=== PATIENT | male | born 1950 ===

== ENCOUNTER 2016-10-26 15:08 | Inpatient (IN) ==
[2016-10-26 17:35] LABS: Basophils % 0.3 % (0.0-0.8); Eosinophils # 0.1 10*3/uL (0.0-0.87); Eosinophils % 0.8 % (0.00-10.9); Hematocrit 32.5 VOL% (42.0-52.0); Hemoglobin 11.2 GM/DL (14.0-18.0); Immature Granulocytes % 0.6 %; Immature Granulocytes Absolute 0.07 #; Lymphocytes # 0.9 10*3/uL (1.4-4.0); Lymphocytes % 7.2 % (21.2-54.2); Mean Corpuscular HGB Conc 34.5 GM/DL (32-36); Mean Corpuscular Hemoglobin 30 PG (27-34); Mean Corpuscular Volume 87.1 FL (87-102); Mean Platelet Volume 12.4 FL (9.6-12.0); Monocytes # 0.7 10*3/uL (0.11-0.8); Monocytes % 6.2 % (1.7-12.7); Neutrophils # 10.1 10*3/uL (1.4-7.4); Neutrophils % 84.9 % (38.7-73.9); Platelet Count 167 T/CUMM (130-400); Red Blood Count 3.73 MC/CUMM (3.8-5.5); White Blood Count 11.9 T/CUMM (4-12)
--- NOTE | 2016-10-26 17:44 | XRay Report ---
Right foot, 3 views History is diabetes with right foot abscess There has been prior amputation through the distal aspects of the first through third metatarsals with chronic, corticated changes at the postoperative site. No aggressive periosteal reaction or focal erosions are seen Vascular calcifications present Impression: Chronic changes described above PROCEDURE INTERPRETED AT [facility] DEPARTMENT OF RADIOLOGY Final Report Signed by: Dr. Toya Carson
[2016-10-26 17:50] LABS: Calcium 8.2 MG/DL (8.5-10.1); Magnesium 2.1 MG/DL (1.8-2.4); Osmolality,Calculated 289.1 MOS/KG (273-304); Potassium 4.3 MMOL/L (3.5-5.1)
[2016-10-26] MEDS ORDERED: CLINDAMYCIN INJ 600 MG in PREMIX 1 EACH IV STA (17:57)
[2016-10-26] MEDS ORDERED: ALUMINUM/MAGNES/SIMETH MAX STR 30 ML UDCUP PO PRN (18:16)
[2016-10-26] MEDS ORDERED: HYDROmorphone 2 MG/1 ML VIAL IV PRN (18:16)
[2016-10-26] MEDS ORDERED: ONDANSETRON 4 MG/2 ML VIAL IV PRN (18:16)
[2016-10-26] MEDS ORDERED: GLUCAGON 1 MG VIAL IM PRN (18:16)
[2016-10-26] MEDS ORDERED: DEXTROSE 50% 25 GM/50 ML VIAL IV PRN (18:16)
[2016-10-26] MEDS ORDERED: ACETAMINOPHEN 325 MG TABLET PO PRN (18:16)
--- NOTE | 2016-10-26 18:17 | Emergency Department Note ---
Rohit Morel Brittany, am scribing for, and in the presence of, Sanjay Mcdonough M.D. 17:03. Sharonda Morel Howard T, M.D., personally performed the services described in this documentation, ascribed by Dina Bee in my presence, and it is both accurate and complete 816 . Arrival - Arrival Chief Complaint: Abscess Stated Complaint: DRAIN ON RT FOOT ED Nursing Triage Note: sent from [facility] for further evaluation of ulcer on bottom of right foot. Mode of Arrival: Ambulatory Limitations: No Limitations Source: Patient, Old Records Reviewed, RN Notes Reviewed - History of Present Illness HPI Narrative: Patient is a 65 y/o [place] male presenting to the ED by EMS from [facility] for further evaluation of ulcer to the plantar region of the right foot. Patient states that he has noticed some dry skin to the plantar region of his foot and had been scraping it off. He then began to notice erythema and swelling which prompted his visit to [facility]. He states that while at [facility] ER physician there was able to remove some drainage from the right foot, but at current in room there is no drainage. Patient denies having any labwork or XR performed during time at [facility] prior to transfer. In room patient has a chronic ulcer at the lateral aspect of the right foot. He also has diffuse erythema and swelling beginning at the plantar region radiating into the medial aspect. He has a history of amputation of the right great, first and second toes from . Patient denies having any pain. He has no other complaint/pain in the ED at this time. Allergies/Adverse Reactions: Allergies Allergy/AdvReac Type Severity Reaction Status Date / Time No Known Allergies Allergy Unverified 11/25/15 07:34 Home Medications: Home Medications Medication Instructions Recorded Confirmed Type Aspirin [Ecotrin] 81 mg PO DAILY 11/25/15 10/26/16 History Lisinopril [Prinivil] 10 mg PO DAILY 11/25/15 10/26/16 History Pravastatin [Pravachol] 20 mg PO QPM 11/25/15 10/26/16 History Insulin Detemir [Levemir FlexPen] 20 unit SUBCUT BEDTIME 10/26/16 10/26/16 History Metformin HCl 1,000 mg PO BID 10/26/16 10/26/16 History Saxagliptin HCl [Onglyza] 5 mg PO DAILY 10/26/16 10/26/16 History Review of System - Review of System 12 point system: reviewed and no additional remarkable complaints except as stated - Review of System Skin: Present: as per HPI Medical,Surgical,& Family Hx - Medical History Cardio: History of: Hypertension Neurology: History of: Cerebrovascular Accident (2006) No history of: Seizures Endocrine: History of: Diabetes Mellitus (IDDM), Dyslipidemia Musculoskeletal: History of: Amputation (toes ernie) Hematology: No history of: Blood Transfusion Reaction Other: No history of: Anesthesia Reactions, Cancer - Surgical History HEENT Surgeries: Surgical HX of: Thyroid Surgery Abdominal Surgeries: Patient denies: Abdominal Surgery - Family History Family History: Reports;: Family Cancer (dad-stomach) - Social History Smoking Status: Never smoker Exam Vital Signs: Vital Signs Temperature 98.8 F 10/26/16 15:18 Pulse Rate 104 H 10/26/16 15:18 Respiratory Rate 18 10/26/16 15:18 Blood Pressure 111/63 10/26/16 15:18 O2 Sat by Pulse Oximetry 99 10/26/16 15:18 - General General appearance: alert, in no apparent distress - Head Head exam: Present: atraumatic, normocephalic, normal inspection - Eye Eye exam: Present: normal appearance, PERRL, EOMI - ENT ENT exam: Present: normal exam, normal oropharynx - Neck Neck exam: Present: normal inspection, full ROM, trachea midline - Chest Chest inspection: Present: normal inspection, symmetric chest wall rise - Respiratory Respiratory exam: Present: normal lung sounds bilaterally. Absent: rales, rhonchi, wheezes - Cardiovascular Cardiovascular exam: Present: regular rate, normal rhythm, normal heart sounds. Absent: murmur, rubs, gallop - Abdominal Exam Abdominal exam: Present: soft, normal bowel sounds. Absent: distention, tenderness - Extremities Exam Extremities exam: Present: full ROM. Absent: normal inspection (prior amputation of the great, second, and third toes; diffuse acute erythema radiating from the plantar region into the medial aspect; chronic ulcer at the lateral aspect; pedal pulses intact), tenderness - Back Exam Back exam: Present: normal inspection - Neurological Exam Neurological exam: Present: alert, oriented X3, CN II-XII intact. Absent: motor sensory deficit - Psychiatric Psychiatric exam: Present: normal affect - Skin Skin exam: Present: warm, dry. Absent: intact (diffuse acute erythema and swelling radiating from the plantar region into the medial aspect; chronic ulcer at the lateral aspect; pedal pulses intact) Course Course Narrative: Medical decision making: Patient's foot was evaluated by general surgeon health information tech Dr. Preciado who will admit and likely take him to the OR in the morning. Results - Labs CBC & BMP: 10/26/16 17:19 10/26/16 17:19 Lab Results: I have reviewed the patients labs Labs: Laboratory Tests 10/26/16 17:19 WBC 11.9 RBC 3.73 L Hgb 11.2 L Hct 32.5 L MCV 87.1 MCH 30 MCHC 34.5 RDW 14.0 Plt Count 167 MPV 12.4 H Neut % (Auto) 84.9 H Lymph % (Auto) 7.2 L Nye % (Auto) 6.2 Eos % (Auto) 0.8 Baso % (Auto) 0.3 Neut # (Auto) 10.1 H Lymph # (Auto) 0.9 L Nye # (Auto) 0.7 Eos # (Auto) 0.1 Baso # (Auto) 0.0 Immature Gran % 0.6 Nucleated RBC % 0.0 Immature Gran # 0.07 Nucleated RBCs # 0.00 Laboratory Tests 10/26/16 17:19 Sodium 142 Potassium 4.3 Chloride 106 Carbon Dioxide 25 Anion Gap 15.3 H BUN 26 H Creatinine 1.70 H GFR Calculation 43 BUN/Creatinine Ratio 15.00 Glucose 135 H Calculated Osmolality 289.1 Calcium 8.2 L Magnesium 2.1 - Diagnostic Findings Procedure: X-ray: report reviewed by me (Right Foot XR: There has been prior amputation through the distal aspects of the first through third metatarsals with chronic, corticated changes at the postoperative site. No aggressive periosteal reaction or focal erosions are seen.) Disposition Clinical Impression: Cellulitis, Abscess of skin or subcutaneous tissue, Abscess of right foot Case discussed with: patient Disposition: Disch/Xfer-Ipshort Term Hos Condition: Stable Time of Disposition: 18:16
--- NOTE | 2016-10-26 18:29 | General Surg History&Physical ---
Assessment and Plan - Time spent with patient Time spent with patient: Greater than 30 minutes (1) Abscess of skin or subcutaneous tissue Status: Acute Assessment and plan: Impression: 1. Abscess of the right foot with cellulitis 2. Diabetes mellitus insulin-dependent Plan: IV antibiotics and surgical debridement drainage. Current Visit: Yes Qualifiers: Site of cutaneous abscess of extremity: foot Laterality: right History of Present Illness Chief complaint: Abscess of the right foot History of present illness: Mr. Adams is a 65 year old male male who is a diabetic insulin- dependent and has a callus on the right foot on the lateral aspect of the been working on for couple weeks. Over the last 5 days he developed an area of swelling and erythema in the plantar surface of the foot. The arch and he was sent in here for possible drainage of this abscess. Same in the emergency room and started on some IV antibiotics set him up for surgery in the morning get this area drained. In the past he has had to have a couple toes amputated on that foot because of infection in the past. Home Medications Medication Instructions Recorded Confirmed Type Aspirin [Ecotrin] 81 mg PO DAILY 11/25/15 10/26/16 History Lisinopril [Prinivil] 10 mg PO DAILY 11/25/15 10/26/16 History Pravastatin [Pravachol] 20 mg PO QPM 11/25/15 10/26/16 History Insulin Detemir [Levemir FlexPen] 20 unit SUBCUT BEDTIME 10/26/16 10/26/16 History Metformin HCl 1,000 mg PO BID 10/26/16 10/26/16 History Saxagliptin HCl [Onglyza] 5 mg PO DAILY 10/26/16 10/26/16 History Allergies Allergy/AdvReac Type Severity Reaction Status Date / Time No Known Allergies Allergy Unverified 11/25/15 07:34 Medical,Surgical,& Family Hx - Medical History Cardio: History of: Hypertension Neurology: History of: Cerebrovascular Accident (2005) No history of: Seizures Endocrine: History of: Diabetes Mellitus (IDDM), Dyslipidemia Musculoskeletal: History of: Amputation (toes ernie) Hematology: No history of: Blood Transfusion Reaction Other: No history of: Anesthesia Reactions, Cancer - Surgical History HEENT Surgeries: Surgical HX of: Thyroid Surgery Abdominal Surgeries: Patient denies: Abdominal Surgery - Family History Family History: Reports;: Family Cancer (dad-stomach) - Social History Smoking Status: Never smoker Functional capacity: independent ambulation Exam - Constitutional Vitals: Period Temp Pulse Resp BP Sys/Evangelista Pulse Ox Last 24 Hr 98.8 F 104 18 111/63 99 General appearance: mild distress - Head Head exam: Present: normal inspection - ENT ENT exam: Present: normal exam - Neck Neck exam: Present: normal inspection - Respiratory Respiratory exam: Present: clear to auscultation bilaterally - Cardiovascular Cardiovascular exam: Present: RRR - GI/Abdominal GI/Abdominal exam: Present: normal bowel sounds, soft - Extremities Exam Extremities exam: Present: other (The right foot has the first 2 toes missing at this time with a healed wound present. He has a callus on the lateral aspect of the foot that looks a little fluctuant also that may have a small ulcer in the center of it. On the medial aspect of the foot on the plantar surface at the arch is an erythematous area with a lacunar area in the very center part of it is a little bit tender at this time. There is a 2+ palpable pulse dorsalis pedis in this right foot he has a 4+ pulse on the left.) - Back Exam Back exam: Present: normal inspection - Neurological Exam Neurological exam: Present: alert, oriented X3, CN II-XII intact - Skin Skin exam: Present: normal color, warm, dry 12 point system: reviewed and no additional remarkable complaints except as stated Results - Labs CBC & BMP: 10/26/16 17:19 10/26/16 17:19 Lab Results: I have reviewed the past 24 hour labs - Diagnostic Findings Procedure: Chest x-ray: pending, X-ray: report reviewed by me (Right foot with no evidence of air under the skin and no evidence of osteo-in the bone)
[2016-10-26] MEDS ORDERED: CLINDAMYCIN INJ 50 ML IV ONE (18:34)
--- NOTE | 2016-10-26 19:44 | XRay Report ---
History is a preop respiratory screening Single portable film obtained. Heart is at the upper range of normal in size Skin fold overlies the left lung base. There is slight elevation right diaphragm No consolidative infiltrate is seen Impression: 1. Borderline heart size 2. Minimal hypoaeration changes in the right lung base PROCEDURE INTERPRETED AT [facility] DEPARTMENT OF RADIOLOGY Final Report Signed by: Dr. Toya Carson
[2016-10-26] MEDS: metroNIDAZOLE INJ 500 MG in PREMIX 1 EACH IV SCH (20:22)
[2016-10-26] MEDS: SODIUM CHLORIDE 0.45% 1,000 ML IV SCH (20:22)
[2016-10-26] MEDS: DOCUSATE SODIUM 100 MG CAPSULE PO SCH (20:22)
[2016-10-26] MEDS: PRAVASTATIN 20 MG TABLET PO SCH (20:22)
[2016-10-26] MEDS: INSULIN GLARGINE 100 UNIT/ML SUBCUT SCH (20:26)
[2016-10-26] MEDS: PIPERACILLIN/TAZOBACTAM 3,375 MG in SODIUM CHLORIDE 0.9% 100 ML IV SCH (21:19)
[2016-10-26] MEDS: INSULIN REGULAR 100 UNIT/ML SUBCUT SCH (21:20)
[2016-10-27] MEDS: CLINDAMYCIN INJ 900 MG in PREMIX 1 EACH IV SCH ×4 (01:13→18:08)
[2016-10-27] MEDS: metroNIDAZOLE INJ 500 MG in PREMIX 1 EACH IV SCH ×4 (01:44→18:57)
[2016-10-27] MEDS: PIPERACILLIN/TAZOBACTAM 3,375 MG in SODIUM CHLORIDE 0.9% 100 ML IV SCH ×3 (02:45→20:42)
[2016-10-27] MEDS: SODIUM CHLORIDE 0.45% 1,000 ML IV SCH ×3 (03:53→18:58)
--- NOTE | 2016-10-27 07:25 | EKG Report ---
Stationary ECG Study [facility] Test Date: 10/27/2016 7:25:11 AM Pat Name: MAXIMINO AMBROSE Department: Room: 331 Gender: M Windows Server Administrator: DARCY : 1950 Requested by: Simone Patel Order Number: [id number] Reading MD: AKBAR GONZALEZ Intervals [place] Rate: 84 P: 66 KS: 158 QRS: 53 QRSD: 114 T: 5 QT: 366 QTc: 408 Interpretive Statements SINUS RHYTHM MODERATE INTRAVENTRICULAR CONDUCTION DELAY ST ELEVATION, PROBABLY EARLY REPOLARIZATION Electronically Signed On 10-27-16 12:28:03 CDT by AKBAR GONZALEZ [email or web address]
[2016-10-27 08:55] LABS: Basophils % 0.5 % (0.0-0.8); Eosinophils # 0.1 10*3/uL (0.0-0.87); Eosinophils % 1.2 % (0.00-10.9); Hematocrit 29.2 VOL% (42.0-52.0); Hemoglobin 9.9 GM/DL (14.0-18.0); Immature Granulocytes % 0.7 %; Immature Granulocytes Absolute 0.06 #; Lymphocytes # 0.7 10*3/uL (1.4-4.0); Lymphocytes % 8.1 % (21.2-54.2); Mean Corpuscular HGB Conc 33.9 GM/DL (32-36); Mean Corpuscular Hemoglobin 29 PG (27-34); Mean Corpuscular Volume 86.4 FL (87-102); Mean Platelet Volume 11.9 FL (9.6-12.0); Monocytes # 0.6 10*3/uL (0.11-0.8); Monocytes % 6.4 % (1.7-12.7); Neutrophils # 7.2 10*3/uL (1.4-7.4); Neutrophils % 83.1 % (38.7-73.9); Platelet Count 176 T/CUMM (130-400); Red Blood Count 3.38 MC/CUMM (3.8-5.5); Red Cell Distribution Width 14.1 % (9.3-17.3); White Blood Count 8.6 T/CUMM (4-12)
[2016-10-27 09:09] LABS: INR 1.1; PT Patient Result 11.4 SECS
[2016-10-27 09:16] LABS: Partial Thromboplastin Time 43.4 SECS (0-40)
[2016-10-27] MEDS: DOCUSATE SODIUM 100 MG CAPSULE PO SCH ×2 (09:21→20:42)
[2016-10-27] MEDS: INSULIN REGULAR 100 UNIT/ML SUBCUT SCH ×4 (09:21→20:42)
[2016-10-27] MEDS: ASPIRIN EC 81 MG TABLET PO SCH (09:21)
[2016-10-27] MEDS: PANTOPRAZOLE 40 MG TABLET PO SCH (09:22)
[2016-10-27] MEDS: sitaGLIPtin 100 MG TABLET PO SCH (09:22)
[2016-10-27 09:27] LABS: Albumin 2.8 G/DL (3.4-5.0); Calcium 7.9 MG/DL (8.5-10.1); Osmolality,Calculated 291.7 MOS/KG (273-304); Potassium 4.3 MMOL/L (3.5-5.1); Total Protein 6.3 G/DL (6.4-8.3)
[2016-10-27] MEDS: LISINOPRIL 10 MG TABLET PO SCH (09:58)
[2016-10-27] MEDS: ENOXAPARIN 40 MG/0.4 ML SYRINGE SUBCUT SCH (13:31)
[2016-10-27] MEDS ORDERED: BUPIVACAINE 0.25% 50 ML VIAL ONE (14:19)
[2016-10-27] MEDS ORDERED: PROPOFOL 200 MG/20 ML VIAL IV ONE (14:30)
--- NOTE | 2016-10-27 15:10 | Physician Query Form ---
CLICK EDIT DOCUMENT TO SELECT QUERY ANSWER --> OK --> SIGN Radha Gomez RN Clinical Stunt Performer W) [phone] (f) [phone] [email or web address] PROVIDERS: Make your selection(s) from the choices in EACH section by typing an "x" and enter comments in the comment section. Please use your independent medical judgment in providing your response. This request does not imply that any particular answer is desired or expected. CLINICAL INDICATORS: (Providers should not edit this section) Based on lab results of creatinine on admission of 1.70 with a GFR of 43 and decreased to 1.20. Pt. treated with IV fluids. Clarify which of the following most accurately represents the patient's renal status: ( x) Acute kidney injury (non-traumatic) ( ) Acute renal failure ( ) Acute renal failure with underlying Chronic Kidney Disease (CKD) - please provide stage below ( ) CKD - please provide stage below ( ) Other, please specify: ( ) Clinically unable to determine Chronic Kidney Disease Stages Source: National Kidney Disease Foundation ( ) Stage I (eGFR > or = 90) ( ) Stage II (eGFR 60 - 89) ( ) Stage III (eGFR 30 - 59) ( ) Stage IV (eGFR 15 - 29) ( ) Stage V (eGFR < 15 or dialysis) COMMENTS: Use of terms such as suspected, likely, or probable (associated with a specific diagnosis that is being evaluated, monitored, or treated as if it exists) are acceptable and can be restated in the discharge summary if not ruled out. MTDD
[2016-10-27] MEDS ORDERED: HYDROmorphone 2 MG/1 ML VIAL IV PRN (15:19)
[2016-10-27] MEDS ORDERED: GLUCAGON 1 MG VIAL IM PRN (15:19)
[2016-10-27] MEDS ORDERED: DEXTROSE 50% 25 GM/50 ML VIAL IV PRN (15:19)
--- NOTE | 2016-10-27 15:27 | Anesthesia ---
Anesthesia Post OP - Post Ansesthetic Evaluation Patient seen in post op: Yes Resp: within normal limits CV: within normal limits Mental: within normal limits Temp: within normal limits [id number]-[id number]: within normal limits Nausea and Vomiting: within normal limits Pain: within normal limits
[2016-10-27] MEDS ORDERED: fentaNYL 100 MCG/2 ML VIAL ONE (15:30)
[2016-10-27] MEDS ORDERED: MIDAZOLAM 2 MG/2 ML VIAL ONE (15:30)
--- NOTE | 2016-10-27 15:31 | Operative Note ---
Date of procedure: 10/27/16 Pre-op diagnosis: Abscess right foot plantar surface Post-op diagnosis: same Procedure: Operative note: Preoperative diagnosis: Abscess of the plantar surface of the right foot with a diabetic ulcer lateral aspect of the right foot. Postoperative diagnosis: Same Procedure: Excisional debridement of skin subtenons tissue fascia of the plantar surface of the right foot. 2 excisional debridement of ulcer lateral aspect of the right foot with tunneling. Surgeon Dr. Patel Anesthesia was managed anesthetic care with local Brief history: Diabetic 65-year-old white male who lost toes in the past because of infection and has developed a callused ulcerated area on the lateral aspect of his foot. Over the last 5 days is started get more swelling and erythematous changes in the plantar surface of his foot. Came into the emergency room where he felt like that this fluctuant area with some necrotic changes need to be drained. Put him on antibiotics brought him to surgery this afternoon for surgery. Procedure: With patient in supine position prepped and draped in a sterile fashion timeout and antibiotics completed approaches area of the plantar surface where there is a fluctuant mass with ischemic skin changes present right about the level of the arch. After infiltrating local anesthetic I made an incision to the skin subtenons tissue entering a deep pocket of purulent material that we then cultured with swabs. I then excised the necrotic skin around it and it went down into the deep part of the wound debriding necrotic fatty tissue and some fascia in order to get this wound bed is clean his I could possibly get it. I did extend the incision proximally and distally in order to get control of this area and get it cleaned up. Lost a little more skin in an area that we had to debride away because it was necrotic. Once this area looked fairly clean I did not see further extension of the infection that I begin to look at that lateral ulcer. Shaved some of the callus of the lateral ulcer. Is ideally dropped into an ulcer of the tunnel towards this plantar surface wound. Without much difficulty we found to track the Jacob from this lateral ulcer into the wound that we just created. At that point I put a through and through KATE drain and then finished by debridement in the foot wound. We washed irrigated with saline solution at this time. We now have a plantar wound is 6 1.5 x 0.7 cm in size. Bulky dressing was applied and the patient taken to recovery room. Estimated blood loss 5 cc Sponge count correct 2 Drains one quarter inch [place] Complications none Condition stable satisfactory Anesthesia: MAC, local (0.25% Marcaine plain mixed [id number] 1% Xylocaine plain) Surgeon / Physician: Simone Patel Estimated blood loss: minimal Specimens: other (Tissue for cultures) Condition: stable Disposition: floor Results - Labs CBC & BMP: 10/27/16 08:39 10/27/16 08:39 Discharge Plan - Discharge Medications No Action Lisinopril [Prinivil] 10 mg PO DAILY Pravastatin [Pravachol] 20 mg PO QPM Aspirin [Ecotrin] 81 mg PO DAILY Metformin HCl 1,000 mg PO BID Saxagliptin HCl [Onglyza] 5 mg PO DAILY Insulin Detemir [Levemir FlexPen] 20 unit SUBCUT BEDTIME - Follow Up or Referral - Forms/Instructions
[2016-10-27] MEDS: PRAVASTATIN 20 MG TABLET PO SCH (18:57)
[2016-10-27] MEDS: INSULIN GLARGINE 100 UNIT/ML SUBCUT SCH (20:42)
[2016-10-28] MEDS: CLINDAMYCIN INJ 900 MG in PREMIX 1 EACH IV SCH ×4 (00:14→17:24)
[2016-10-28] MEDS: metroNIDAZOLE INJ 500 MG in PREMIX 1 EACH IV SCH ×4 (01:02→17:57)
[2016-10-28] MEDS: PIPERACILLIN/TAZOBACTAM 3,375 MG in SODIUM CHLORIDE 0.9% 100 ML IV SCH ×3 (02:06→19:16)
[2016-10-28] MEDS: SODIUM CHLORIDE 0.45% 1,000 ML IV SCH ×3 (05:07→17:58)
[2016-10-28 06:08] LABS: Basophils % 0.5 % (0.0-0.8); Eosinophils # 0.1 10*3/uL (0.0-0.87); Eosinophils % 1.6 % (0.00-10.9); Hematocrit 28.8 VOL% (42.0-52.0); Hemoglobin 9.8 GM/DL (14.0-18.0); Immature Granulocytes % 0.7 %; Immature Granulocytes Absolute 0.06 #; Lymphocytes # 0.9 10*3/uL (1.4-4.0); Lymphocytes % 11.4 % (21.2-54.2); Mean Corpuscular Hemoglobin 29 PG (27-34); Mean Corpuscular Volume 86.5 FL (87-102); Mean Platelet Volume 11.7 FL (9.6-12.0); Monocytes # 0.7 10*3/uL (0.11-0.8); Monocytes % 8.3 % (1.7-12.7); Neutrophils # 6.3 10*3/uL (1.4-7.4); Neutrophils % 77.5 % (38.7-73.9); Platelet Count 171 T/CUMM (130-400); Red Blood Count 3.33 MC/CUMM (3.8-5.5); White Blood Count 8.1 T/CUMM (4-12)
[2016-10-28 06:41] LABS: Calcium 7.6 MG/DL (8.5-10.1); Osmolality,Calculated 290.6 MOS/KG (273-304)
[2016-10-28] MEDS: INSULIN REGULAR 100 UNIT/ML SUBCUT SCH ×4 (09:00→21:20)
--- NOTE | 2016-10-28 09:25 | General Surgery Progress Note ---
Assessment and Plan - Time spent with patient Time spent with patient: Less than 30 minutes (1) Abscess of skin or subcutaneous tissue Status: Acute Assessment and plan: Impression: 1. Abscess of the right foot with cellulitis 2. Diabetes mellitus insulin-dependent Plan: IV antibiotics and surgical debridement drainage. 10/28/2016 Starting wound care to the right foot as well as some physical therapy to get him to learn to put pressure just on the toes at this time and not on the bottom of his foot. He is on antibiotics and cultures are pending at this time. We will look the possibility of getting him to [facility] probably end of the week in attempt to continue wound care and some IV antibiotics. Current Visit: Yes Qualifiers: Site of cutaneous abscess of extremity: foot Laterality: right Subjective Patient reports: Present: no new complaints, pain is less, tolerating a regular diet, afebrile Exam - Constitutional Vitals: Period Temp Pulse Resp BP Sys/Evangelista Pulse Ox Last 24 Hr 97.3 F-99.8 F 59-94 16-20 97-132/53-67 94-100 General appearance: mild distress - Head Head exam: Present: normal inspection - ENT ENT exam: Present: normal exam - Neck Neck exam: Present: normal inspection - Respiratory Respiratory exam: Present: clear to auscultation bilaterally, rales - Cardiovascular Cardiovascular exam: Present: RRR - GI/Abdominal GI/Abdominal exam: Present: normal bowel sounds, soft - Extremities Exam Extremities exam: Present: other (Wound care starting on the ulcer of the plantar surface of the right foot. Clean with no obvious extension of the infection.) - Back Exam Back exam: Present: normal inspection - Neurological Exam Neurological exam: Present: alert, oriented X3, CN II-XII intact - Skin Skin exam: Present: normal color, warm, dry Results - Labs CBC & BMP: 10/28/16 04:57 10/28/16 04:57 Lab Results: I have reviewed the past 24 hour labs
[2016-10-28] MEDS: PANTOPRAZOLE 40 MG TABLET PO SCH (09:40)
[2016-10-28] MEDS: LISINOPRIL 10 MG TABLET PO SCH (09:40)
[2016-10-28] MEDS: ASPIRIN EC 81 MG TABLET PO SCH (09:40)
[2016-10-28] MEDS: sitaGLIPtin 100 MG TABLET PO SCH (09:41)
[2016-10-28] MEDS: DOCUSATE SODIUM 100 MG CAPSULE PO SCH ×2 (09:41→20:20)
[2016-10-28] MEDS: ENOXAPARIN 40 MG/0.4 ML SYRINGE SUBCUT SCH (12:38)
[2016-10-28] MEDS: PRAVASTATIN 20 MG TABLET PO SCH (19:16)
[2016-10-28] MEDS: INSULIN GLARGINE 100 UNIT/ML SUBCUT SCH (22:40)
[2016-10-29] MEDS: CLINDAMYCIN INJ 900 MG in PREMIX 1 EACH IV SCH ×4 (00:06→22:16)
[2016-10-29] MEDS: metroNIDAZOLE INJ 500 MG in PREMIX 1 EACH IV SCH ×4 (02:04→23:06)
[2016-10-29] MEDS: SODIUM CHLORIDE 0.45% 1,000 ML IV SCH ×3 (03:04→17:36)
[2016-10-29] MEDS: PIPERACILLIN/TAZOBACTAM 3,375 MG in SODIUM CHLORIDE 0.9% 100 ML IV SCH ×3 (03:05→17:46)
[2016-10-29] MEDS: INSULIN REGULAR 100 UNIT/ML SUBCUT SCH ×4 (08:12→21:17)
[2016-10-29] MEDS: sitaGLIPtin 100 MG TABLET PO SCH (08:15)
[2016-10-29] MEDS: ASPIRIN EC 81 MG TABLET PO SCH (08:29)
[2016-10-29] MEDS: PANTOPRAZOLE 40 MG TABLET PO SCH (08:29)
[2016-10-29] MEDS: DOCUSATE SODIUM 100 MG CAPSULE PO SCH ×2 (08:29→20:13)
[2016-10-29] MEDS: LISINOPRIL 10 MG TABLET PO SCH (08:29)
[2016-10-29] MEDS: BACITRACIN OINT 0.9 GM PACK TOP SCH (09:26)
[2016-10-29] MEDS: ENOXAPARIN 40 MG/0.4 ML SYRINGE SUBCUT SCH (11:53)
--- NOTE | 2016-10-29 14:08 | General Surgery Progress Note ---
Assessment and Plan - Time spent with patient Time spent with patient: Less than 30 minutes (1) Abscess of right foot Status: Acute Assessment and plan: Stable post I/D/Debridement of right foot. We'll continue the clindamycin and wound care for now. Considering coverage/closure methods. Current Visit: Yes Subjective Patient reports: Present: no new complaints, pain is less Exam - Constitutional Vitals: Period Temp Pulse Resp BP Sys/Evangelista Pulse Ox Last 24 Hr 97.9 F-99.7 F 72-88 18-20 86-134/49-70 98-100 General appearance: no acute distress - ENT Mouth exam: Present: normal voice, dry mucosa - Respiratory Respiratory exam: Absent: rales, wheezes - Cardiovascular Cardiovascular exam: Present: RRR - GI/Abdominal GI/Abdominal exam: Present: hypoactive bowel sounds, soft. Absent: tenderness - Extremities Exam Extremities exam: Present: other (Wound care has already been done today so I did not remove dressing; wound nurse reports the wound looks clean and pink without advancing redness.) Results - Labs CBC & BMP: 10/28/16 04:57 10/28/16 04:57 Lab Results: I have reviewed the past 24 hour labs (Labs noted; Micro reports S. agalactiae, sensitive to the clinda he's on.) Specialty Discharge - Follow Up or Referrals
[2016-10-29] MEDS: PRAVASTATIN 20 MG TABLET PO SCH (19:00)
[2016-10-29] MEDS: AMOXICILLIN/CLAV 500 MG TABLET PO SCH (20:13)
[2016-10-29] MEDS: INSULIN GLARGINE 100 UNIT/ML SUBCUT SCH (21:16)
[2016-10-30] MEDS: SODIUM CHLORIDE 0.45% 1,000 ML IV SCH ×2 (01:29→14:47)
[2016-10-30] MEDS: CLINDAMYCIN INJ 900 MG in PREMIX 1 EACH IV SCH ×2 (03:09→09:56)
[2016-10-30] MEDS: metroNIDAZOLE INJ 500 MG in PREMIX 1 EACH IV SCH ×2 (04:09→14:47)
[2016-10-30] MEDS: PIPERACILLIN/TAZOBACTAM 3,375 MG in SODIUM CHLORIDE 0.9% 100 ML IV SCH (05:55)
[2016-10-30 06:26] LABS: Basophils % 0.7 % (0.0-0.8); Eosinophils # 0.2 10*3/uL (0.0-0.87); Hematocrit 31.1 VOL% (42.0-52.0); Hemoglobin 10.3 GM/DL (14.0-18.0); Immature Granulocytes % 2.1 %; Immature Granulocytes Absolute 0.12 #; Lymphocytes % 17.5 % (21.2-54.2); Mean Corpuscular HGB Conc 33.1 GM/DL (32-36); Mean Corpuscular Hemoglobin 29 PG (27-34); Mean Corpuscular Volume 87.6 FL (87-102); Mean Platelet Volume 11.7 FL (9.6-12.0); Monocytes # 0.5 10*3/uL (0.11-0.8); Monocytes % 8.6 % (1.7-12.7); Neutrophils # 3.8 10*3/uL (1.4-7.4); Neutrophils % 68.1 % (38.7-73.9); Platelet Count 206 T/CUMM (130-400); Red Blood Count 3.55 MC/CUMM (3.8-5.5); Red Cell Distribution Width 13.9 % (9.3-17.3); White Blood Count 5.6 T/CUMM (4-12)
[2016-10-30 06:49] LABS: Calcium 7.9 MG/DL (8.5-10.1); Osmolality,Calculated 283.8 MOS/KG (273-304)
--- NOTE | 2016-10-30 09:22 | Discharge Summary ---
Hospital Course - Hospital Course Hospital Course: Discharge summary: Discharge diagnoses: 1. Abscess of the right foot plantar surface 2. Diabetic ulcer lateral aspect of the right foot 3. Diabetes insulin-dependent Procedure: Excisional debridement and drainage of abscess plantar surface right foot and debridement of ulcer with through and through drain lateral aspect of the right foot Surgeon Dr. Patel Brief summary: 65-year-old diabetic male who has had a ulcer on the lateral aspect of his right foot that has been treated in the clinic for some time. It is a small ulcer with a good bit of callus to it but then he presented with a new area at the arch of the foot with good bit of swelling and early tissue loss in that region. He was admitted put on some IV antibiotics and taken to surgery. At the time of surgery we opened up this area the plantar part of the foot ended up draining a good bit of infected material and carefully debrided the wound bed to get all the necrotic tissue out that we could see. He wanted to communicate with this ulcer on the lateral aspect of the foot. Rather than extending the incision across the entire plantar surface I went ahead and created a through and through drain after debriding the ulcer on the lateral aspect of the foot. Cultures were obtained and will grow out staph that is going to be sensitive to Augmentin at this time. I remain concerned that he has a risk for some further infection as well as an exposed tendon and fascia in this wound bed that if gets dry we will lose and lose some function. I have arranged for him to go to [facility] for additional wound care and will follow him up in the office in couple weeks and see what is basically doing try to modify the care to some degree may remove the drain at that time. I have gotten the special shoe but have encouraged him that he needs to try to ambulate with only pressure on his toes and try not to step directly down on the foot. - Time spent with patient Time with patient DS: Less than 30 minutes Diagnosis - Discharge Diagnosis (1) Abscess of skin or subcutaneous tissue Status: Chronic Specialty Discharge - Follow Up or Referrals Follow up with: Simone Patel MD [Physician] - 11/19/16 - Speciality Discharge Instructions Surgery Instructions: 1. Maintain present wound care. 2. Try to teach patient to use crutches or walker and avoid pressure on the bottom of his right foot. 3. Continue the p.o. antibiotics for the next 2 weeks. 4. Observe for any unusual swelling or redness of the ankle or the foot to keep the drain in place. Discharge Plan - Discharge Data Disposition: Disch/Xfer to Snf Condition at Discharge: Stable Discharge Diet: diabetic diet (1800 karon) Activity: ambulate only with your walker, as per physical therapy, no prolonged standing, other (Try to avoid direct pressure on the bottom of his foot) Hygiene: may shower Weight Bearing at Discharge: toe touch (Right foot) Driving: not until seen by doctor Contact your physician if you experience:: fever over 101, Redness or swelling, Bleeding, pain uncontrolled by pain medications Wound / Dressing Care Instructions: See wound care orders from [facility] - Discharge Medications New Acetaminophen Tab [Tylenol Tab] 650 mg PO Q6H PRN #0 tablet PRN Reason: Pain Mild (1-3) And/Or Fever Amoxicillin/Clav Tab [Augmentin Tab] 500 mg PO TID 14 Days HYDROcodone/ACETAMIN 7.5-325 [[place] 7.5-325] 1 tablet PO Q6H PRN #30 tablet PRN Reason: Pain Moderate (4-7) Docusate Sodium Cap [Colace Cap] 100 mg PO DAILY #30 capsule Continue Lisinopril [Prinivil] 10 mg PO DAILY Pravastatin [Pravachol] 20 mg PO QPM Aspirin [Ecotrin] 81 mg PO DAILY Metformin HCl 1,000 mg PO BID Saxagliptin HCl [Onglyza] 5 mg PO DAILY Insulin Detemir [Levemir FlexPen] 20 unit SUBCUT BEDTIME - Follow Up or Referral - Forms/Instructions Instructions: Debridement (DC) Exam - Constitutional Vitals: Period Temp Pulse Resp BP Sys/Evangelista Pulse Ox Last 24 Hr 98.0 F-98.6 F 69-78 18-20 118-145/57-69 98-99 General appearance: no acute distress - Head Head exam: Present: normal inspection - ENT ENT exam: Present: normal exam - Respiratory Respiratory exam: Present: clear to auscultation bilaterally - Cardiovascular Cardiovascular exam: Present: regular rate and rhythm - GI/Abdominal GI/Abdominal exam: Present: normal bowel sounds, soft - Extremities Exam Extremities exam: Present: other (Wound on the plantar surface of the foot is fairly clean with the tendons easily seen and exposed there is is still some drainage there that is of concern. The lateral ulcer looks clean of gout through and through drain still in place. No other areas of erythematous changes are swelling.) - Back Exam Back exam: Present: normal inspection - Neurological Exam Neurological exam: Present: alert, oriented X3, CN II-XII intact - Psychiatric Psychiatric exam: Present: normal affect, normal mood - Skin Skin exam: Present: normal color, warm, dry Discharge Results Labs on day of discharge: Labs from last 24 hours 10/30/16 10/30/16 10/30/16 07:00 05:24 05:24 WBC 5.6 D RBC 3.55 L Hgb 10.3 L Hct 31.1 L MCV 87.6 MCH 29 MCHC 33.1 RDW 13.9 Plt Count 206 D MPV 11.7 Neut % (Auto) 68.1 Lymph % (Auto) 17.5 L [place] % (Auto) 8.6 Eos % (Auto) 3.0 Baso % (Auto) 0.7 Neut # (Auto) 3.8 Lymph # (Auto) 1.0 L [place] # (Auto) 0.5 Eos # (Auto) 0.2 Baso # (Auto) 0.0 Immature Gran % 2.1 Nucleated RBC % 0.0 Immature Gran # 0.12 Nucleated RBCs # 0.00 Sodium 144 Potassium 4.0 Chloride 111 H Carbon Dioxide 24 Anion Gap 13.0 BUN 9 Creatinine 1.00 GFR Calculation 80 BUN/Creatinine Ratio 9.00 Glucose 88 POC Glucose 83 Calculated Osmolality 283.8 Calcium 7.9 L 10/29/16 10/29/16 10/29/16 19:50 15:51 11:07 WBC RBC Hgb Hct MCV MCH MCHC RDW Plt Count MPV Neut % (Auto) Lymph % (Auto) [place] % (Auto) Eos % (Auto) Baso % (Auto) Neut # (Auto) Lymph # (Auto) [place] # (Auto) Eos # (Auto) Baso # (Auto) Immature Gran % Nucleated RBC % Immature Gran # Nucleated RBCs # Sodium Potassium Chloride Carbon Dioxide Anion Gap BUN Creatinine GFR Calculation BUN/Creatinine Ratio Glucose POC Glucose 227 H 144 H 161 H Calculated Osmolality Calcium DS: Provider Date of admission: 10/26/16 18:16 Primary care physician: Ashutosh Alvarez MD Attending physician on admission: Simone Patel MD Consults: 10/26/16 18:25 Consult to Anesthesiology [CONS] Routine Consulting Provider: Reason for Anesthesiology: Pre-op Clearance 10/27/16 15:23 Consult to Case Mgmt/Social Srvs [CONS] Routine Reason for Case Mgmt/Social Srvs: Discharge Planning Consult Comment: Home health or [facility] for wound care 10/27/16 15:24 Consult to Physical Therapy [CONS] Routine Reason for Physical Therapy: Evaluate and Treat Start Therapy: Tomorrow Consult Comment: Ambulate with only toe touching right foot 10/27/16 15:28 Consult to Pharmacy [CONS] Routine Reason for Pharmacy Consult: Adjust Meds Renal Funct 10/27/16 17:35 Consult to Wound Care [facility] [CONS] Routine Reason for Wound Care: Wound Care Management Consult Comment: right foot wound Discharging clinician: Simone Patel MD Expected date of discharge: 10/30/16
[2016-10-30] MEDS: sitaGLIPtin 100 MG TABLET PO SCH (09:54)
[2016-10-30] MEDS: ASPIRIN EC 81 MG TABLET PO SCH (09:54)
[2016-10-30] MEDS: DOCUSATE SODIUM 100 MG CAPSULE PO SCH (09:54)
[2016-10-30] MEDS: AMOXICILLIN/CLAV 500 MG TABLET PO SCH (09:54)
[2016-10-30] MEDS: PANTOPRAZOLE 40 MG TABLET PO SCH (09:55)
[2016-10-30] MEDS: LISINOPRIL 10 MG TABLET PO SCH (09:55)
[2016-10-30] MEDS: INSULIN REGULAR 100 UNIT/ML SUBCUT SCH (09:56)
[2016-10-30] MEDS: BACITRACIN OINT 0.9 GM PACK TOP SCH (09:56)
[2016-10-30 13:22] VITALS: BP 160/91
== END 2016-10-30 14:30 | disposition other institution (70) | DRG 571 ==
LOC: N.ED 15:08 → N.EDINP 18:16 → N.3E 19:31
PROVIDERS: ADMIT Specialist; ATTEND Specialist

== ENCOUNTER 2019-04-25 12:25 | Inpatient (IN) ==
[2019-04-25] MEDS ORDERED: HYDROmorphone 2 MG/1 ML VIAL IV PRN ×2 (13:35)
[2019-04-25] MEDS ORDERED: BISACODYL 5 MG TABLET PO PRN (13:35)
[2019-04-25] MEDS ORDERED: ALBUTEROL/IPRATROPIUM 3 ML NEB RESP TX PRN (13:35)
[2019-04-25] MEDS ORDERED: ACETAMINOPHEN 325 MG TABLET PO PRN (13:35)
[2019-04-25] MEDS ORDERED: ONDANSETRON 4 MG/2 ML VIAL IV PRN (13:35)
[2019-04-25] MEDS ORDERED: DEXTROSE 10% 25 GM/250 ML BAG IV PRN (13:37)
[2019-04-25] MEDS ORDERED: GLUCAGON 1 MG VIAL IM PRN (13:37)
[2019-04-25] MEDS ORDERED: LIDOCAINE 1% 20 ML VIAL ONE ×2 (14:40→16:04)
[2019-04-25] MEDS: PIPERACILLIN/TAZOBACTAM 3,375 MG in SODIUM CHLORIDE 0.9% 100 ML IV SCH ×2 (14:48→22:50)
[2019-04-25] MEDS: LACTATED RINGERS 1,000 ML IV SCH (14:49)
[2019-04-25] MEDS ORDERED: INSULIN REGULAR 100 UNIT/ML IV ONE (15:31)
[2019-04-25] MEDS ORDERED: INSULIN REGULAR 100 UNIT/ML ONE (15:34)
[2019-04-25] MEDS ORDERED: INFLUENZA VIRUS VACCINE 0.5 ML SYRINGE IM ONE (15:52)
[2019-04-25] MEDS ORDERED: DOCUSATE SODIUM 100 MG CAPSULE PO PRN (16:44)
[2019-04-25] MEDS ORDERED: SEVOFLURANE 1 UNIT/15 MINUTE INH ONE (16:53)
[2019-04-25] MEDS ORDERED: PROPOFOL 200 MG/20 ML VIAL IV ONE (16:53)
[2019-04-25] MEDS ORDERED: LIDOCAINE 2% 5 ML VIAL ONE (16:53)
[2019-04-25] MEDS ORDERED: PHENYLEPHRINE 1 MG/10 ML SYRINGE IV ONE (16:54)
[2019-04-25] MEDS ORDERED: MIDAZOLAM 2 MG/2 ML VIAL ONE (16:54)
[2019-04-25] MEDS ORDERED: ETOMIDATE 40 MG/20 ML VIAL IV ONE (16:54)
[2019-04-25] MEDS ORDERED: ONDANSETRON 4 MG/2 ML VIAL ONE (16:54)
[2019-04-25] MEDS ORDERED: fentaNYL 100 MCG/2 ML VIAL ONE (16:54)
[2019-04-25] MEDS: INSULIN LISPRO 100 UNIT/ML SUBCUT SCH (18:13)
[2019-04-25 18:16] LABS: Basophils % 0.4 % (0.0-0.8); Eosinophils % 0.5 % (0.00-10.9); Hematocrit 29.9 VOL% (42.0-52.0); Hemoglobin 9.9 GM/DL (14.0-18.0); Immature Granulocytes % 1.4 %; Immature Granulocytes Absolute 0.11 #; Lymphocytes # 0.5 10*3/uL (1.4-4.0); Lymphocytes % 6.7 % (21.2-54.2); Mean Corpuscular HGB Conc 33.1 GM/DL (32-36); Mean Corpuscular Volume 82.8 FL (87-102); Mean Platelet Volume 13.4 FL (9.6-12.0); Monocytes % 7.6 % (1.7-12.7); Neutrophils % 83.4 % (38.7-73.9); Platelet Count 143 T/CUMM (130-400); Red Blood Count 3.61 MC/CUMM (3.8-5.5); Red Cell Distribution Width 14.7 % (9.3-17.3); White Blood Count 7.9 T/CUMM (4-12)
[2019-04-25 18:32] LABS: Calcium 8.8 MG/DL (8.5-10.1); Osmolality,Calculated 281.2 MOS/KG (273-304)
[2019-04-25] MEDS ORDERED: VANCOMYCIN INJ 1,000 MG in SODIUM CHLORIDE 0.9% 250 ML IV SCH (20:00)
[2019-04-25] MEDS: SIMVASTATIN 20 MG TABLET PO SCH (20:31)
[2019-04-26 06:02] LABS: Basophils % 0.6 % (0.0-0.8); Eosinophils # 0.2 10*3/uL (0.0-0.87); Eosinophils % 2.2 % (0.00-10.9); Hematocrit 27.5 VOL% (42.0-52.0); Immature Granulocytes % 1.6 %; Immature Granulocytes Absolute 0.11 #; Lymphocytes # 0.7 10*3/uL (1.4-4.0); Lymphocytes % 9.7 % (21.2-54.2); Mean Corpuscular HGB Conc 32.7 GM/DL (32-36); Mean Corpuscular Volume 84.1 FL (87-102); Mean Platelet Volume 13.9 FL (9.6-12.0); Monocytes % 8.4 % (1.7-12.7); Neutrophils % 77.5 % (38.7-73.9); Platelet Count 126 T/CUMM (130-400); Red Blood Count 3.27 MC/CUMM (3.8-5.5); Red Cell Distribution Width 14.9 % (9.3-17.3); White Blood Count 6.9 T/CUMM (4-12)
[2019-04-26] MEDS: LEVOTHYROXINE 25 MCG TABLET PO SCH (06:05)
[2019-04-26] MEDS: PIPERACILLIN/TAZOBACTAM 3,375 MG in SODIUM CHLORIDE 0.9% 100 ML IV SCH ×2 (06:07→17:36)
[2019-04-26 06:31] LABS: Bilirubin,Total 1.2 MG/DL (0.2-1.0); Osmolality,Calculated 278.4 MOS/KG (273-304); Total Protein 6.8 G/DL (6.4-8.3)
[2019-04-26] MEDS: hydroCHLOROthiazide 12.5 MG CAPSULE PO SCH (09:28)
[2019-04-26] MEDS: amLODIPine 5 MG TABLET PO SCH (09:28)
[2019-04-26] MEDS: ASPIRIN EC 81 MG TABLET PO SCH (09:29)
[2019-04-26] MEDS: PANTOPRAZOLE 40 MG TABLET PO SCH (09:29)
[2019-04-26] MEDS: INSULIN LISPRO 100 UNIT/ML SUBCUT SCH ×3 (09:30→17:34)
[2019-04-26] MEDS: LINEZOLID INJ 600 MG in PREMIX 1 EACH IV SCH ×2 (12:06→21:42)
[2019-04-26] MEDS: SODIUM HYPOCHLORITE 0.25% IRRIG 473 ML BOTTLE TOP SCH (12:16)
[2019-04-26] MEDS: LACTATED RINGERS 1,000 ML IV SCH ×4 (12:41→22:02)
[2019-04-26] MEDS: SIMVASTATIN 20 MG TABLET PO SCH (21:08)
[2019-04-27] MEDS: PIPERACILLIN/TAZOBACTAM 3,375 MG in SODIUM CHLORIDE 0.9% 100 ML IV SCH ×3 (01:16→17:32)
[2019-04-27] MEDS: LEVOTHYROXINE 25 MCG TABLET PO SCH (06:04)
[2019-04-27] MEDS: SODIUM HYPOCHLORITE 0.25% IRRIG 473 ML BOTTLE TOP SCH (07:15)
[2019-04-27] MEDS: hydroCHLOROthiazide 12.5 MG CAPSULE PO SCH (09:38)
[2019-04-27] MEDS: amLODIPine 5 MG TABLET PO SCH (09:39)
[2019-04-27] MEDS: PANTOPRAZOLE 40 MG TABLET PO SCH (09:39)
[2019-04-27] MEDS: ASPIRIN EC 81 MG TABLET PO SCH (09:39)
[2019-04-27] MEDS: INSULIN LISPRO 100 UNIT/ML SUBCUT SCH ×3 (09:39→17:30)
[2019-04-27] MEDS: LACTATED RINGERS 1,000 ML IV SCH ×2 (09:46→17:36)
[2019-04-27] MEDS: LINEZOLID INJ 600 MG in PREMIX 1 EACH IV SCH ×2 (10:12→21:51)
[2019-04-27] MEDS: SIMVASTATIN 20 MG TABLET PO SCH (21:07)
[2019-04-28] MEDS: PIPERACILLIN/TAZOBACTAM 3,375 MG in SODIUM CHLORIDE 0.9% 100 ML IV SCH ×3 (01:18→18:25)
[2019-04-28] MEDS: LACTATED RINGERS 1,000 ML IV SCH ×2 (01:18→19:37)
[2019-04-28] MEDS: LEVOTHYROXINE 25 MCG TABLET PO SCH (06:13)
[2019-04-28 07:25] LABS: Calcium 7.9 MG/DL (8.5-10.1); Osmolality,Calculated 279.2 MOS/KG (273-304)
[2019-04-28] MEDS: ASPIRIN EC 81 MG TABLET PO SCH (08:25)
[2019-04-28] MEDS: hydroCHLOROthiazide 12.5 MG CAPSULE PO SCH (08:25)
[2019-04-28] MEDS: INSULIN LISPRO 100 UNIT/ML SUBCUT SCH ×3 (08:25→18:24)
[2019-04-28] MEDS: LINEZOLID INJ 600 MG in PREMIX 1 EACH IV SCH ×2 (08:25→22:49)
[2019-04-28] MEDS: amLODIPine 5 MG TABLET PO SCH (08:25)
[2019-04-28] MEDS: PANTOPRAZOLE 40 MG TABLET PO SCH (08:25)
[2019-04-28] MEDS: SODIUM HYPOCHLORITE 0.25% IRRIG 473 ML BOTTLE TOP SCH (10:00)
[2019-04-28] MEDS: SIMVASTATIN 20 MG TABLET PO SCH (20:39)
[2019-04-28] MEDS ORDERED: INSULIN GLARGINE 100 UNIT/ML SUBCUT SCH (21:00)
[2019-04-29] MEDS: PIPERACILLIN/TAZOBACTAM 3,375 MG in SODIUM CHLORIDE 0.9% 100 ML IV SCH ×3 (01:40→17:45)
[2019-04-29 05:09] LABS: Calcium 7.9 MG/DL (8.5-10.1); Osmolality,Calculated 279.2 MOS/KG (273-304)
[2019-04-29] MEDS: LEVOTHYROXINE 25 MCG TABLET PO SCH (06:07)
[2019-04-29] MEDS: INSULIN LISPRO 100 UNIT/ML SUBCUT SCH ×3 (08:20→17:45)
[2019-04-29] MEDS: SODIUM HYPOCHLORITE 0.25% IRRIG 473 ML BOTTLE TOP SCH (09:01)
[2019-04-29] MEDS: hydroCHLOROthiazide 12.5 MG CAPSULE PO SCH (09:02)
[2019-04-29] MEDS: ASPIRIN EC 81 MG TABLET PO SCH (09:02)
[2019-04-29] MEDS: amLODIPine 5 MG TABLET PO SCH (09:02)
[2019-04-29] MEDS: PANTOPRAZOLE 40 MG TABLET PO SCH (09:02)
[2019-04-29] MEDS: sitaGLIPtin 25 MG TABLET PO SCH (09:10)
[2019-04-29] MEDS: LINEZOLID INJ 600 MG in PREMIX 1 EACH IV SCH (13:29)
[2019-04-29] MEDS: INSULIN GLARGINE 100 UNIT/ML SUBCUT SCH (21:06)
[2019-04-29] MEDS: SIMVASTATIN 20 MG TABLET PO SCH (21:07)
[2019-04-30] MEDS: LINEZOLID INJ 600 MG in PREMIX 1 EACH IV SCH ×2 (00:15→13:06)
[2019-04-30] MEDS: PIPERACILLIN/TAZOBACTAM 3,375 MG in SODIUM CHLORIDE 0.9% 100 ML IV SCH ×3 (02:27→17:07)
[2019-04-30] MEDS: LEVOTHYROXINE 25 MCG TABLET PO SCH (06:18)
[2019-04-30] MEDS: INSULIN LISPRO 100 UNIT/ML SUBCUT SCH ×3 (08:41→17:07)
[2019-04-30] MEDS: SODIUM HYPOCHLORITE 0.25% IRRIG 473 ML BOTTLE TOP SCH (08:42)
[2019-04-30] MEDS: sitaGLIPtin 25 MG TABLET PO SCH (08:42)
[2019-04-30] MEDS: ASPIRIN EC 81 MG TABLET PO SCH (08:42)
[2019-04-30] MEDS: amLODIPine 5 MG TABLET PO SCH (08:42)
[2019-04-30] MEDS: hydroCHLOROthiazide 12.5 MG CAPSULE PO SCH (08:42)
[2019-04-30] MEDS: PANTOPRAZOLE 40 MG TABLET PO SCH (08:42)
[2019-04-30] MEDS: INSULIN GLARGINE 100 UNIT/ML SUBCUT SCH (21:10)
[2019-04-30] MEDS: SIMVASTATIN 20 MG TABLET PO SCH (21:11)
[2019-05-01] MEDS: LINEZOLID INJ 600 MG in PREMIX 1 EACH IV SCH ×2 (00:06→13:34)
[2019-05-01] MEDS: PIPERACILLIN/TAZOBACTAM 3,375 MG in SODIUM CHLORIDE 0.9% 100 ML IV SCH ×3 (01:50→18:12)
[2019-05-01] MEDS: LEVOTHYROXINE 25 MCG TABLET PO SCH (06:08)
[2019-05-01] MEDS: INSULIN LISPRO 100 UNIT/ML SUBCUT SCH ×3 (08:00→18:07)
[2019-05-01] MEDS: SODIUM HYPOCHLORITE 0.25% IRRIG 473 ML BOTTLE TOP SCH (09:00)
[2019-05-01] MEDS: hydroCHLOROthiazide 12.5 MG CAPSULE PO SCH (09:58)
[2019-05-01] MEDS: amLODIPine 5 MG TABLET PO SCH (09:59)
[2019-05-01] MEDS: PANTOPRAZOLE 40 MG TABLET PO SCH (09:59)
[2019-05-01] MEDS: ASPIRIN EC 81 MG TABLET PO SCH (09:59)
[2019-05-01] MEDS: sitaGLIPtin 25 MG TABLET PO SCH (09:59)
[2019-05-01] MEDS ORDERED: TUBERCULIN SKIN TEST 0.1 ML SYRINGE INTRADERM ONE (16:00)
[2019-05-01] MEDS: SIMVASTATIN 20 MG TABLET PO SCH (22:09)
[2019-05-01] MEDS: INSULIN GLARGINE 100 UNIT/ML SUBCUT SCH (22:24)
[2019-05-02] MEDS: LINEZOLID INJ 600 MG in PREMIX 1 EACH IV SCH (02:29)
[2019-05-02] MEDS: PIPERACILLIN/TAZOBACTAM 3,375 MG in SODIUM CHLORIDE 0.9% 100 ML IV SCH ×2 (04:27→13:20)
[2019-05-02] MEDS ORDERED: FAMOTIDINE 20 MG TABLET PO ONE (06:00)
[2019-05-02] MEDS: LEVOTHYROXINE 25 MCG TABLET PO SCH (06:30)
[2019-05-02] MEDS: amLODIPine 5 MG TABLET PO SCH (08:45)
[2019-05-02] MEDS: INSULIN LISPRO 100 UNIT/ML SUBCUT SCH ×3 (08:45→19:12)
[2019-05-02] MEDS: PANTOPRAZOLE 40 MG TABLET PO SCH (08:45)
[2019-05-02] MEDS: SODIUM HYPOCHLORITE 0.25% IRRIG 473 ML BOTTLE TOP SCH (09:57)
[2019-05-02] MEDS: hydroCHLOROthiazide 12.5 MG CAPSULE PO SCH (09:57)
[2019-05-02] MEDS: ASPIRIN EC 81 MG TABLET PO SCH (09:57)
[2019-05-02] MEDS: sitaGLIPtin 25 MG TABLET PO SCH (09:58)
[2019-05-02] MEDS ORDERED: PROPOFOL 200 MG/20 ML VIAL IV ONE (11:42)
[2019-05-02] MEDS ORDERED: LIDOCAINE 2% 5 ML VIAL ONE (11:42)
[2019-05-02] MEDS ORDERED: SEVOFLURANE 1 UNIT/15 MINUTE INH ONE (11:42)
[2019-05-02] MEDS ORDERED: fentaNYL 100 MCG/2 ML VIAL ONE (11:43)
[2019-05-02] MEDS ORDERED: LACTATED RINGERS 1,000 ML IV ONE (11:43)
[2019-05-02] MEDS ORDERED: ONDANSETRON 4 MG/2 ML VIAL ONE (11:43)
[2019-05-02] MEDS ORDERED: PHENYLEPHRINE 1 MG/10 ML SYRINGE IV ONE (11:43)
[2019-05-02] MEDS ORDERED: ETOMIDATE 40 MG/20 ML VIAL IV ONE (11:43)
[2019-05-02] MEDS ORDERED: VANCOMYCIN INJ 1,250 MG in SODIUM CHLORIDE 0.9% 250 ML IV SCH (13:00)
[2019-05-02] MEDS ORDERED: SILVER NITRATE STICK 1 EACH TOP ONE (15:40)
[2019-05-02] MEDS: INSULIN GLARGINE 100 UNIT/ML SUBCUT SCH (21:10)
[2019-05-02] MEDS: SIMVASTATIN 20 MG TABLET PO SCH (21:11)
[2019-05-03 05:15] LABS: Calcium 7.9 MG/DL (8.5-10.1); Osmolality,Calculated 279.4 MOS/KG (273-304)
[2019-05-03] MEDS: INSULIN LISPRO 100 UNIT/ML SUBCUT SCH ×3 (07:38→17:21)
[2019-05-03] MEDS: sitaGLIPtin 25 MG TABLET PO SCH (08:50)
[2019-05-03] MEDS: LEVOTHYROXINE 25 MCG TABLET PO SCH (08:50)
[2019-05-03] MEDS: ASPIRIN EC 81 MG TABLET PO SCH (08:50)
[2019-05-03] MEDS: SODIUM HYPOCHLORITE 0.25% IRRIG 473 ML BOTTLE TOP SCH (08:51)
[2019-05-03] MEDS: amLODIPine 5 MG TABLET PO SCH (08:51)
[2019-05-03] MEDS: hydroCHLOROthiazide 12.5 MG CAPSULE PO SCH (08:51)
[2019-05-03] MEDS: PANTOPRAZOLE 40 MG TABLET PO SCH (08:51)
[2019-05-03] MEDS: SIMVASTATIN 20 MG TABLET PO SCH (20:25)
[2019-05-03] MEDS: INSULIN GLARGINE 100 UNIT/ML SUBCUT SCH (20:26)
[2019-05-04] MEDS: LEVOTHYROXINE 25 MCG TABLET PO SCH (06:00)
[2019-05-04] MEDS: INSULIN LISPRO 100 UNIT/ML SUBCUT SCH ×2 (07:20→11:14)
[2019-05-04] MEDS: hydroCHLOROthiazide 12.5 MG CAPSULE PO SCH (08:17)
[2019-05-04] MEDS: ASPIRIN EC 81 MG TABLET PO SCH (08:17)
[2019-05-04] MEDS: sitaGLIPtin 25 MG TABLET PO SCH (08:17)
[2019-05-04] MEDS: amLODIPine 5 MG TABLET PO SCH (08:17)
[2019-05-04] MEDS: PANTOPRAZOLE 40 MG TABLET PO SCH (08:17)
[2019-05-04] MEDS ORDERED: VANCOMYCIN INJ 1,250 MG in SODIUM CHLORIDE 0.9% 250 ML IV SCH (09:00)
[2019-05-04] MEDS: SODIUM HYPOCHLORITE 0.25% IRRIG 473 ML BOTTLE TOP SCH (10:59)
[2019-05-04 11:10] VITALS: BP 166/79
== END 2019-05-04 14:25 | disposition swing bed (61) | DRG 240 ==
LOC: EDBD → EDUNIT# → N.ED 12:25 → N.EDINP 13:35 → N.3E 14:15
PROVIDERS: ADMIT Surgery; ATTEND Surgery

== ENCOUNTER 2019-12-12 19:01 | Inpatient (IN) ==
[2019-12-12] MEDS ORDERED: SODIUM CHLORIDE 0.9% 1,000 ML IV STA (19:30)
[2019-12-12 19:46] LABS: Basophils % 0.3 % (0.0-0.8); Hematocrit 28.2 VOL% (42.0-52.0); Hemoglobin 9.2 GM/DL (14.0-18.0); Immature Granulocytes % 1.7 %; Immature Granulocytes Absolute 0.22 #; Lymphocytes # 0.7 10*3/uL (1.4-4.0); Lymphocytes % 5.2 % (21.2-54.2); Mean Corpuscular HGB Conc 32.6 GM/DL (32-36); Mean Corpuscular Volume 85.5 FL (87-102); Monocytes % 6.3 % (1.7-12.7); Neutrophils % 86.5 % (38.7-73.9); Platelet Count 102 T/CUMM (130-400); Red Cell Distribution Width 14.2 % (9.3-17.3); White Blood Count 12.6 T/CUMM (4-12)
[2019-12-12 19:55] LABS: INR 1.1; PT Patient Result 11.9 SECS (9.8-11.9)
[2019-12-12 20:00] LABS: Alanine Aminotransferase 10 U/L (16-61); Albumin 1.7 G/DL (3.4-5.0); Alkaline Phosphatase 117 U/L (45-117); Aspartate Amino Transferase 12 U/L (0-37); Blood Urea Nitrogen 27 MG/DL (7-18); Calcium 7.7 MG/DL (8.5-10.1); Estimated Glom Filtration Rate 27 ML/MIN; Glucose 295 MG/DL (74-106); Osmolality,Calculated 273.9 MOS/KG (273-304); Troponin I < 0.015 NG/ML (0.00-0.045)
[2019-12-12 20:14] LABS: Band Neutrophils 1 % (0-10); Lymphocytes 3 % (20-55); Segmented Neutrophils 93 % (50-85); Total Cells Counted 100
[2019-12-12 20:15] LABS: Platelet Estimate Adequate
[2019-12-12 21:11] LABS: Sedimentation Rate-Westergren 110 MM/HR (0-20)
[2019-12-13] MEDS ORDERED: ACETAMINOPHEN 325 MG TABLET PO PRN (00:34)
[2019-12-13] MEDS ORDERED: ONDANSETRON 4 MG/2 ML VIAL IV PRN ×2 (00:34→09:50)
[2019-12-13] MEDS ORDERED: HYDROmorphone 2 MG/1 ML VIAL IV PRN (00:34)
[2019-12-13] MEDS ORDERED: PROMETHAZINE 25 MG/1 ML VIAL IM PRN (00:34)
[2019-12-13] MEDS ORDERED: GLUCAGON 1 MG VIAL IM PRN (00:34)
[2019-12-13] MEDS ORDERED: DEXTROSE 10% 250 ML BAG IV PRN (00:55)
[2019-12-13] MEDS: LACTATED RINGERS 1,000 ML IV SCH ×4 (01:15→20:54)
[2019-12-13] MEDS: MEROPENEM 500 MG in SODIUM CHLORIDE 0.9% 100 ML IV SCH ×3 (01:15→21:04)
[2019-12-13] MEDS: LINEZOLID INJ 600 MG in PREMIX 1 EACH IV SCH ×2 (02:05→15:16)
[2019-12-13] MEDS: INSULIN REGULAR 100 UNIT/ML SUBCUT SCH ×5 (02:46→20:52)
[2019-12-13] MEDS ORDERED: CLINDAMYCIN INJ 900 MG in PREMIX 1 EACH IV ONE (06:30)
[2019-12-13] MEDS ORDERED: fentaNYL 100 MCG/2 ML VIAL ONE (06:47)
[2019-12-13] MEDS ORDERED: MIDAZOLAM 2 MG/2 ML VIAL ONE (06:47)
[2019-12-13] MEDS ORDERED: propofoL 200 MG/20 ML VIAL IV ONE (06:47)
[2019-12-13] MEDS ORDERED: SUCCINYLCHOLINE 200 MG/10 ML VIAL ONE (06:48)
[2019-12-13] MEDS ORDERED: LIDOCAINE 2% 5 ML VIAL ONE (06:48)
[2019-12-13 07:29] LABS: Basophils # 0.1 10*3/uL (0.0-0.2); Basophils % 0.6 % (0.0-0.8); Eosinophils # 0.1 10*3/uL (0.0-0.87); Eosinophils % 1.1 % (0.00-10.9); Hematocrit 31.3 VOL% (42.0-52.0); Immature Granulocytes % 0.9 %; Immature Granulocytes Absolute 0.09 #; Lymphocytes # 0.4 10*3/uL (1.4-4.0); Lymphocytes % 4.2 % (21.2-54.2); Mean Corpuscular HGB Conc 31.9 GM/DL (32-36); Mean Corpuscular Volume 85.5 FL (87-102); Mean Platelet Volume 13.5 FL (9.6-12.0); Monocytes % 6.6 % (1.7-12.7); Neutrophils % 86.6 % (38.7-73.9); Red Blood Count 3.66 MC/CUMM (3.8-5.5); Red Cell Distribution Width 14.5 % (9.3-17.3); White Blood Count 9.5 T/CUMM (4-12)
[2019-12-13 07:32] LABS: Platelet Count 98 T/CUMM (130-400)
[2019-12-13 07:38] LABS: Band Neutrophils 1 % (0-10); Eosinophils 1 % (0-10); Hypochromasia 1+; Lymphocytes 1 % (20-55); Microcytosis Slight; Ovalocytes Slight; Platelet Estimate Decreased; Segmented Neutrophils 92 % (50-85); Total Cells Counted 100
[2019-12-13] MEDS ORDERED: ONDANSETRON 4 MG/2 ML VIAL ONE (08:51)
[2019-12-13] MEDS ORDERED: HYDROmorphone 2 MG/1 ML VIAL ONE (08:51)
[2019-12-13] MEDS: HYDROmorphone 2 MG/1 ML VIAL IV PRN ×2 (08:52→08:57)
[2019-12-13] MEDS ORDERED: SEVOFLURANE 1 UNIT/15 MINUTE INH ONE (09:12)
[2019-12-13] MEDS ORDERED: LACTATED RINGERS 1,000 ML IV ONE (09:12)
[2019-12-13] MEDS ORDERED: PHENYLEPHRINE 1 MG/10 ML SYRINGE IV ONE (09:12)
[2019-12-13] MEDS: PANTOPRAZOLE 40 MG TABLET PO SCH (11:26)
[2019-12-13 15:23] LABS: Calcium 8.1 MG/DL (8.5-10.1); Osmolality,Calculated 283.5 MOS/KG (273-304)
[2019-12-13] MEDS: ENOXAPARIN 40 MG/0.4 ML SYRINGE SUBCUT SCH (20:52)
[2019-12-14] MEDS: LACTATED RINGERS 1,000 ML IV SCH ×2 (00:39→05:03)
[2019-12-14] MEDS: LINEZOLID INJ 600 MG in PREMIX 1 EACH IV SCH (00:39)
[2019-12-14] MEDS: MEROPENEM 500 MG in SODIUM CHLORIDE 0.9% 100 ML IV SCH (05:03)
[2019-12-14 05:30] LABS: Basophils % 0.4 % (0.0-0.8); Eosinophils # 0.2 10*3/uL (0.0-0.87); Hematocrit 28.9 VOL% (42.0-52.0); Immature Granulocytes % 1.6 %; Immature Granulocytes Absolute 0.11 #; Lymphocytes # 0.9 10*3/uL (1.4-4.0); Lymphocytes % 12.3 % (21.2-54.2); Mean Corpuscular HGB Conc 31.1 GM/DL (32-36); Mean Corpuscular Volume 86.3 FL (87-102); Mean Platelet Volume 13.2 FL (9.6-12.0); Monocytes % 9.3 % (1.7-12.7); Neutrophils % 73.4 % (38.7-73.9); Platelet Count 111 T/CUMM (130-400); Red Blood Count 3.35 MC/CUMM (3.8-5.5); Red Cell Distribution Width 14.6 % (9.3-17.3)
[2019-12-14 05:51] LABS: Calcium 7.2 MG/DL (8.5-10.1)
[2019-12-14] MEDS: INSULIN REGULAR 100 UNIT/ML SUBCUT SCH ×4 (09:25→20:43)
[2019-12-14] MEDS: PANTOPRAZOLE 40 MG TABLET PO SCH (09:25)
[2019-12-14] MEDS ORDERED: AMOXICILLIN/CLAV 875 MG TABLET PO SCH (17:00)
[2019-12-14] MEDS: ENOXAPARIN 40 MG/0.4 ML SYRINGE SUBCUT SCH (20:42)
[2019-12-14] MEDS: AMOXICILLIN/CLAV 875 MG TABLET PO SCH (20:43)
[2019-12-15] MEDS ORDERED: DOCUSATE SODIUM 100 MG CAPSULE PO PRN (06:44)
[2019-12-15 06:50] LABS: Basophils % 0.3 % (0.0-0.8); Eosinophils # 0.1 10*3/uL (0.0-0.87); Eosinophils % 1.3 % (0.00-10.9); Hematocrit 28.6 VOL% (42.0-52.0); Hemoglobin 9.2 GM/DL (14.0-18.0); Immature Granulocytes % 1.6 %; Lymphocytes % 15.7 % (21.2-54.2); Mean Corpuscular HGB Conc 32.2 GM/DL (32-36); Mean Corpuscular Volume 84.6 FL (87-102); Mean Platelet Volume 13.5 FL (9.6-12.0); Monocytes % 7.7 % (1.7-12.7); Neutrophils % 73.4 % (38.7-73.9); Platelet Count 130 T/CUMM (130-400); Red Blood Count 3.38 MC/CUMM (3.8-5.5); Red Cell Distribution Width 14.4 % (9.3-17.3); White Blood Count 6.1 T/CUMM (4-12)
[2019-12-15 07:10] LABS: Calcium 7.9 MG/DL (8.5-10.1); Osmolality,Calculated 273.1 MOS/KG (273-304)
[2019-12-15] MEDS: INSULIN REGULAR 100 UNIT/ML SUBCUT SCH ×4 (08:37→23:00)
[2019-12-15] MEDS: sitaGLIPtin 25 MG TABLET PO SCH (08:38)
[2019-12-15] MEDS: LEVOTHYROXINE 25 MCG TABLET PO SCH (08:38)
[2019-12-15] MEDS: AMOXICILLIN/CLAV 875 MG TABLET PO SCH ×2 (08:38→21:34)
[2019-12-15] MEDS: hydroCHLOROthiazide 12.5 MG CAPSULE PO SCH (08:39)
[2019-12-15] MEDS: amLODIPine 5 MG TABLET PO SCH (08:39)
[2019-12-15] MEDS: ASPIRIN EC 81 MG TABLET PO SCH (08:39)
[2019-12-15] MEDS: PANTOPRAZOLE 40 MG TABLET PO SCH (08:39)
[2019-12-15] MEDS: SODIUM HYPOCHLORITE 0.25% IRRIG 473 ML BOTTLE TOP SCH (08:40)
[2019-12-15] MEDS: LINEZOLID INJ 600 MG in PREMIX 1 EACH IV SCH (13:09)
[2019-12-15] MEDS: SIMVASTATIN 20 MG TABLET PO SCH (21:35)
[2019-12-15] MEDS: ENOXAPARIN 40 MG/0.4 ML SYRINGE SUBCUT SCH (21:35)
[2019-12-16] MEDS: LINEZOLID INJ 600 MG in PREMIX 1 EACH IV SCH ×2 (01:05→14:20)
[2019-12-16] MEDS: amLODIPine 5 MG TABLET PO SCH (08:50)
[2019-12-16] MEDS: INSULIN REGULAR 100 UNIT/ML SUBCUT SCH ×4 (08:50→22:10)
[2019-12-16] MEDS: hydroCHLOROthiazide 12.5 MG CAPSULE PO SCH (08:50)
[2019-12-16] MEDS: ASPIRIN EC 81 MG TABLET PO SCH (08:50)
[2019-12-16] MEDS: LEVOTHYROXINE 25 MCG TABLET PO SCH (08:50)
[2019-12-16] MEDS: PANTOPRAZOLE 40 MG TABLET PO SCH (08:50)
[2019-12-16] MEDS: SODIUM HYPOCHLORITE 0.25% IRRIG 473 ML BOTTLE TOP SCH (08:50)
[2019-12-16] MEDS: AMOXICILLIN/CLAV 875 MG TABLET PO SCH ×2 (08:50→22:15)
[2019-12-16] MEDS: sitaGLIPtin 25 MG TABLET PO SCH (08:50)
[2019-12-16] MEDS: ENOXAPARIN 40 MG/0.4 ML SYRINGE SUBCUT SCH (22:12)
[2019-12-16] MEDS: SIMVASTATIN 20 MG TABLET PO SCH (22:15)
[2019-12-17] MEDS: LINEZOLID INJ 600 MG in PREMIX 1 EACH IV SCH ×2 (00:50→11:30)
[2019-12-17] MEDS: INSULIN REGULAR 100 UNIT/ML SUBCUT SCH ×4 (08:42→21:26)
[2019-12-17] MEDS: AMOXICILLIN/CLAV 875 MG TABLET PO SCH ×2 (08:45→21:26)
[2019-12-17] MEDS: hydroCHLOROthiazide 12.5 MG CAPSULE PO SCH (08:45)
[2019-12-17] MEDS: ASPIRIN EC 81 MG TABLET PO SCH (08:45)
[2019-12-17] MEDS: LEVOTHYROXINE 25 MCG TABLET PO SCH (08:45)
[2019-12-17] MEDS: sitaGLIPtin 25 MG TABLET PO SCH (08:45)
[2019-12-17] MEDS: amLODIPine 5 MG TABLET PO SCH (08:45)
[2019-12-17] MEDS: PANTOPRAZOLE 40 MG TABLET PO SCH (08:45)
[2019-12-17] MEDS: SODIUM HYPOCHLORITE 0.25% IRRIG 473 ML BOTTLE TOP SCH (11:00)
[2019-12-17] MEDS: SIMVASTATIN 20 MG TABLET PO SCH (21:26)
[2019-12-17] MEDS: ENOXAPARIN 40 MG/0.4 ML SYRINGE SUBCUT SCH (21:26)
[2019-12-18] MEDS: LINEZOLID INJ 600 MG in PREMIX 1 EACH IV SCH ×2 (01:15→12:22)
[2019-12-18] MEDS: INSULIN REGULAR 100 UNIT/ML SUBCUT SCH ×2 (08:45→11:39)
[2019-12-18] MEDS: SODIUM HYPOCHLORITE 0.25% IRRIG 473 ML BOTTLE TOP SCH (09:46)
[2019-12-18] MEDS: LEVOTHYROXINE 25 MCG TABLET PO SCH (09:48)
[2019-12-18] MEDS: ASPIRIN EC 81 MG TABLET PO SCH (09:48)
[2019-12-18] MEDS: sitaGLIPtin 25 MG TABLET PO SCH (09:48)
[2019-12-18] MEDS: PANTOPRAZOLE 40 MG TABLET PO SCH (09:48)
[2019-12-18] MEDS: AMOXICILLIN/CLAV 875 MG TABLET PO SCH (09:48)
[2019-12-18] MEDS: amLODIPine 5 MG TABLET PO SCH (09:48)
[2019-12-18] MEDS: hydroCHLOROthiazide 12.5 MG CAPSULE PO SCH (09:48)
[2019-12-18 11:43] VITALS: BP 137/70
== END 2019-12-18 15:38 | DRG 853 ==
LOC: EDBD → EDUNIT# → N.ED 19:01 → N.EDINP 20:20 → N.TELEN 12-13 02:20 → N.2E 12-13 10:10 → N.3E 12-17 13:01
PROVIDERS: ADMIT Surgery; ATTEND Surgery

== ENCOUNTER 2020-01-22 06:26 | Inpatient (IN) ==
[2020-01-19 15:11] LABS: Basophils # 0.1 10*3/uL (0.0-0.2); Basophils % 1.1 % (0.0-0.8); Eosinophils # 0.3 10*3/uL (0.0-0.87); Hematocrit 27.1 VOL% (42.0-52.0); Hemoglobin 8.6 GM/DL (14.0-18.0); Immature Granulocytes % 1.3 %; Immature Granulocytes Absolute 0.06 #; Lymphocytes % 20.6 % (21.2-54.2); Mean Corpuscular HGB Conc 31.7 GM/DL (32-36); Mean Corpuscular Volume 88.9 FL (87-102); Mean Platelet Volume 12.9 FL (9.6-12.0); Platelet Count 149 T/CUMM (130-400); Red Blood Count 3.05 MC/CUMM (3.8-5.5); Red Cell Distribution Width 18.1 % (9.3-17.3); White Blood Count 4.7 T/CUMM (4-12)
[2020-01-19 15:26] LABS: Calcium 8.1 MG/DL (8.5-10.1); Osmolality,Calculated 276.2 MOS/KG (273-304)
[2020-01-22] MEDS ORDERED: ceFAZolin 1,000 MG in SYRINGE 1 EACH IV ONE (06:30)
[2020-01-22] MEDS ORDERED: DIAZEPAM 5 MG TABLET PO ONE (06:47)
[2020-01-22] MEDS ORDERED: FAMOTIDINE 20 MG TABLET PO ONE (06:47)
[2020-01-22] MEDS ORDERED: ceFAZolin 1,000 MG VIAL ONE (07:35)
[2020-01-22] MEDS ORDERED: DIAZEPAM 5 MG TABLET ONE (07:36)
[2020-01-22] MEDS ORDERED: FAMOTIDINE 20 MG TABLET ONE (07:36)
[2020-01-22] MEDS ORDERED: LACTATED RINGERS 1,000 ML IV SCH (08:00)
[2020-01-22] MEDS ORDERED: LIDOCAINE 1%/EPI INJ 20 ML VIAL ONE (10:11)
[2020-01-22] MEDS ORDERED: BUPIVACAINE MPF 0.25% 30 ML VIAL ONE (10:11)
[2020-01-22] MEDS ORDERED: propofoL 200 MG/20 ML VIAL IV ONE (10:46)
[2020-01-22] MEDS ORDERED: LIDOCAINE 2% 5 ML VIAL ONE (10:46)
[2020-01-22] MEDS ORDERED: SEVOFLURANE 1 UNIT/15 MINUTE INH ONE (10:46)
[2020-01-22] MEDS ORDERED: PHENYLEPHRINE 1 MG/10 ML SYRINGE IV ONE (10:47)
[2020-01-22] MEDS ORDERED: fentaNYL 100 MCG/2 ML VIAL ONE (10:47)
[2020-01-22] MEDS ORDERED: ETOMIDATE 40 MG/20 ML VIAL IV ONE (10:47)
[2020-01-22] MEDS ORDERED: ONDANSETRON 4 MG/2 ML VIAL ONE (10:47)
[2020-01-22] MEDS ORDERED: MIDAZOLAM 2 MG/2 ML VIAL ONE (10:47)
[2020-01-22] MEDS ORDERED: PROMETHAZINE 25 MG/1 ML VIAL IM PRN (13:58)
[2020-01-22] MEDS ORDERED: ONDANSETRON 4 MG/2 ML VIAL IV PRN (13:58)
[2020-01-22] MEDS ORDERED: GLUCAGON 1 MG VIAL IM PRN (13:58)
[2020-01-22] MEDS ORDERED: DEXTROSE 50% 25 GM/50 ML VIAL IV PRN (13:58)
[2020-01-22 14:07] LABS: Basophils % 0.7 % (0.0-0.8); Eosinophils # 0.2 10*3/uL (0.0-0.87); Eosinophils % 4.6 % (0.00-10.9); Hematocrit 25.7 VOL% (42.0-52.0); Hemoglobin 7.9 GM/DL (14.0-18.0); Immature Granulocytes % 0.9 %; Immature Granulocytes Absolute 0.04 #; Lymphocytes % 21.2 % (21.2-54.2); Mean Corpuscular HGB Conc 30.7 GM/DL (32-36); Mean Corpuscular Volume 90.5 FL (87-102); Mean Platelet Volume 13.7 FL (9.6-12.0); Monocytes % 13.5 % (1.7-12.7); Neutrophils % 59.1 % (38.7-73.9); Platelet Count 117 T/CUMM (130-400); Red Blood Count 2.84 MC/CUMM (3.8-5.5); Red Cell Distribution Width 17.3 % (9.3-17.3); White Blood Count 4.5 T/CUMM (4-12)
[2020-01-22 14:14] LABS: Calcium 8.1 MG/DL (8.5-10.1); Osmolality,Calculated 279.8 MOS/KG (273-304)
[2020-01-22] MEDS ORDERED: DEXTROSE 10% 250 ML BAG IV PRN (15:37)
[2020-01-22] MEDS: LACTATED RINGERS 1,000 ML IV SCH (16:01)
[2020-01-22] MEDS: INSULIN REGULAR 100 UNIT/ML SUBCUT SCH ×2 (16:02→21:51)
[2020-01-22] MEDS: PIPERACILLIN/TAZOBACTAM 3,375 MG in SODIUM CHLORIDE 0.9% 100 ML IV SCH (16:24)
[2020-01-22] MEDS: VANCOMYCIN INJ 1,000 MG in SODIUM CHLORIDE 0.9% 250 ML IV SCH (21:35)
[2020-01-22] MEDS: SIMVASTATIN 20 MG TABLET PO SCH (21:36)
[2020-01-23] MEDS: PIPERACILLIN/TAZOBACTAM 3,375 MG in SODIUM CHLORIDE 0.9% 100 ML IV SCH ×4 (01:04→23:29)
[2020-01-23 05:41] LABS: Basophils % 0.9 % (0.0-0.8); Eosinophils # 0.3 10*3/uL (0.0-0.87); Eosinophils % 6.3 % (0.00-10.9); Hematocrit 24.4 VOL% (42.0-52.0); Hemoglobin 7.7 GM/DL (14.0-18.0); Immature Granulocytes % 0.9 %; Immature Granulocytes Absolute 0.04 #; Lymphocytes # 0.8 10*3/uL (1.4-4.0); Lymphocytes % 17.6 % (21.2-54.2); Mean Corpuscular HGB Conc 31.6 GM/DL (32-36); Mean Corpuscular Volume 88.4 FL (87-102); Neutrophils % 62.3 % (38.7-73.9); Platelet Count 122 T/CUMM (130-400); Red Blood Count 2.76 MC/CUMM (3.8-5.5); Red Cell Distribution Width 17.3 % (9.3-17.3); White Blood Count 4.6 T/CUMM (4-12)
[2020-01-23 05:55] LABS: Calcium 7.8 MG/DL (8.5-10.1)
[2020-01-23] MEDS: ENOXAPARIN 40 MG/0.4 ML SYRINGE SUBCUT SCH (06:45)
[2020-01-23] MEDS: LEVOTHYROXINE 25 MCG TABLET PO SCH (06:46)
[2020-01-23] MEDS: LACTATED RINGERS 1,000 ML IV SCH ×5 (06:47→22:13)
[2020-01-23] MEDS: INSULIN REGULAR 100 UNIT/ML SUBCUT SCH ×4 (08:20→20:33)
[2020-01-23] MEDS: MULTIVITAMIN (CENTRUM) TABLET PO SCH (08:34)
[2020-01-23] MEDS: ASPIRIN CHEW 81 MG TABLET PO SCH (08:35)
[2020-01-23] MEDS: amLODIPine 5 MG TABLET PO SCH (08:35)
[2020-01-23] MEDS: SIMVASTATIN 20 MG TABLET PO SCH (20:28)
[2020-01-23] MEDS: VANCOMYCIN INJ 1,000 MG in SODIUM CHLORIDE 0.9% 250 ML IV SCH (21:34)
[2020-01-24] MEDS: ENOXAPARIN 40 MG/0.4 ML SYRINGE SUBCUT SCH (05:42)
[2020-01-24] MEDS: LEVOTHYROXINE 25 MCG TABLET PO SCH (05:42)
[2020-01-24] MEDS: LACTATED RINGERS 1,000 ML IV SCH (06:10)
[2020-01-24] MEDS ORDERED: CLINDAMYCIN INJ 900 MG in PREMIX 1 EACH IV ONE (07:23)
[2020-01-24] MEDS ORDERED: FAMOTIDINE 20 MG TABLET PO ONE (07:45)
[2020-01-24] MEDS ORDERED: DIAZEPAM 5 MG TABLET PO ONE (07:45)
[2020-01-24] MEDS: amLODIPine 5 MG TABLET PO SCH (08:43)
[2020-01-24] MEDS: INSULIN REGULAR 100 UNIT/ML SUBCUT SCH ×4 (08:50→22:41)
[2020-01-24] MEDS ORDERED: MORPHINE 10 MG/10 ML VIAL ONE (09:33)
[2020-01-24] MEDS ORDERED: BUPIVACAINE MPF 0.25% 30 ML VIAL ONE (09:34)
[2020-01-24] MEDS ORDERED: LIDOCAINE MPF 2% /EPI 20 ML VIAL ONE (09:41)
[2020-01-24] MEDS ORDERED: fentaNYL 2 MCG/ROPIV 0.2% EPID 100 ML EPIDURAL ONE (11:09)
[2020-01-24] MEDS ORDERED: ALBUMIN 5% 12.5 GM/250 ML VIAL IV ONE (11:10)
[2020-01-24] MEDS: ASPIRIN CHEW 81 MG TABLET PO SCH (11:11)
[2020-01-24] MEDS: MULTIVITAMIN (CENTRUM) TABLET PO SCH (11:11)
[2020-01-24] MEDS: fentaNYL 2 MCG/ROPIV 0.2% EPID 100 ML EPIDURAL SCH ×2 (11:36→20:46)
[2020-01-24] MEDS ORDERED: ALBUMIN 5% 25 GM in PREMIX 1 EACH IV ONE (11:45)
[2020-01-24] MEDS ORDERED: propofoL 200 MG/20 ML VIAL IV ONE (13:53)
[2020-01-24] MEDS ORDERED: LIDOCAINE 2% 5 ML VIAL ONE (13:53)
[2020-01-24] MEDS ORDERED: MIDAZOLAM 2 MG/2 ML VIAL ONE (13:54)
[2020-01-24] MEDS ORDERED: GLYCOPYRROLATE 0.4 MG/2 ML VIAL ONE (13:54)
[2020-01-24] MEDS ORDERED: SEVOFLURANE 1 UNIT/15 MINUTE INH ONE (13:54)
[2020-01-24] MEDS ORDERED: fentaNYL 100 MCG/2 ML VIAL ONE (13:54)
[2020-01-24] MEDS ORDERED: ONDANSETRON 4 MG/2 ML VIAL ONE (13:54)
[2020-01-24] MEDS ORDERED: ROCURONIUM 100 MG/10 ML VIAL IV ONE (13:55)
[2020-01-24] MEDS ORDERED: NEOSTIGMINE 10 MG/10 ML VIAL ONE (13:55)
[2020-01-24] MEDS ORDERED: LACTATED RINGERS 1,000 ML IV ONE (13:55)
[2020-01-24] MEDS ORDERED: PHENYLEPHRINE 1 MG/10 ML SYRINGE IV ONE (13:55)
[2020-01-24] MEDS: PIPERACILLIN/TAZOBACTAM 3,375 MG in SODIUM CHLORIDE 0.9% 100 ML IV SCH ×2 (14:21→15:32)
[2020-01-24] MEDS: SIMVASTATIN 20 MG TABLET PO SCH (21:22)
[2020-01-24] MEDS: VANCOMYCIN INJ 1,000 MG in SODIUM CHLORIDE 0.9% 250 ML IV SCH (22:10)
[2020-01-25] MEDS: PIPERACILLIN/TAZOBACTAM 3,375 MG in SODIUM CHLORIDE 0.9% 100 ML IV SCH ×3 (01:23→15:25)
[2020-01-25 05:01] LABS: Basophils % 0.4 % (0.0-0.8); Eosinophils # 0.1 10*3/uL (0.0-0.87); Hemoglobin 6.8 GM/DL (14.0-18.0); Immature Granulocytes % 0.8 %; Immature Granulocytes Absolute 0.06 #; Lymphocytes # 0.9 10*3/uL (1.4-4.0); Lymphocytes % 12.3 % (21.2-54.2); Mean Corpuscular HGB Conc 30.9 GM/DL (32-36); Mean Corpuscular Volume 90.5 FL (87-102); Mean Platelet Volume 13.3 FL (9.6-12.0); Monocytes % 10.4 % (1.7-12.7); Neutrophils % 74.1 % (38.7-73.9); Platelet Count 100 T/CUMM (130-400); Red Blood Count 2.43 MC/CUMM (3.8-5.5); Red Cell Distribution Width 16.7 % (9.3-17.3); White Blood Count 7.1 T/CUMM (4-12)
[2020-01-25 05:22] LABS: Calcium 7.3 MG/DL (8.5-10.1); Osmolality,Calculated 270.1 MOS/KG (273-304)
[2020-01-25 05:29] LABS: Hypochromasia 2+; Microcytosis Slight; Platelet Estimate Decreased
[2020-01-25] MEDS: LACTATED RINGERS 1,000 ML IV SCH ×2 (06:09→06:11)
[2020-01-25] MEDS: LEVOTHYROXINE 25 MCG TABLET PO SCH (06:10)
[2020-01-25] MEDS ORDERED: SODIUM CHLORIDE 0.9% 1,000 ML IV PRN (06:33)
[2020-01-25] MEDS: fentaNYL 2 MCG/ROPIV 0.2% EPID 100 ML EPIDURAL SCH ×2 (07:45→21:17)
[2020-01-25] MEDS: amLODIPine 5 MG TABLET PO SCH (08:10)
[2020-01-25] MEDS: MULTIVITAMIN (CENTRUM) TABLET PO SCH (08:10)
[2020-01-25] MEDS: ASPIRIN CHEW 81 MG TABLET PO SCH (08:11)
[2020-01-25] MEDS: INSULIN REGULAR 100 UNIT/ML SUBCUT SCH ×4 (08:11→21:22)
[2020-01-25 10:57] LABS: INR 1.1; PT Patient Result 11.7 SECS (9.8-11.9)
[2020-01-25] MEDS ORDERED: TUBERCULIN SKIN TEST 0.1 ML SYRINGE INTRADERM ONE (10:58)
[2020-01-25 16:00] LABS: Hematocrit 22.9 VOL% (42.0-52.0); Hemoglobin 7.2 GM/DL (14.0-18.0)
[2020-01-25] MEDS: HYDROmorphone 2 MG/1 ML VIAL IV PRN (19:31)
[2020-01-25] MEDS: VANCOMYCIN INJ 1,000 MG in SODIUM CHLORIDE 0.9% 250 ML IV SCH (21:22)
[2020-01-25] MEDS: SIMVASTATIN 20 MG TABLET PO SCH (21:22)
[2020-01-26] MEDS: PIPERACILLIN/TAZOBACTAM 3,375 MG in SODIUM CHLORIDE 0.9% 100 ML IV SCH ×2 (01:00→08:12)
[2020-01-26] MEDS: HYDROmorphone 2 MG/1 ML VIAL IV PRN (01:06)
[2020-01-26] MEDS: LEVOTHYROXINE 25 MCG TABLET PO SCH (05:54)
[2020-01-26 06:31] LABS: Calcium 7.8 MG/DL (8.5-10.1); Osmolality,Calculated 283.7 MOS/KG (273-304)
[2020-01-26 06:37] LABS: Basophils % 0.3 % (0.0-0.8); Eosinophils # 0.1 10*3/uL (0.0-0.87); Eosinophils % 1.2 % (0.00-10.9); Hematocrit 25.8 VOL% (42.0-52.0); Hemoglobin 8.6 GM/DL (14.0-18.0); Immature Granulocytes % 1.5 %; Lymphocytes # 0.9 10*3/uL (1.4-4.0); Lymphocytes % 12.7 % (21.2-54.2); Mean Corpuscular HGB Conc 33.3 GM/DL (32-36); Mean Corpuscular Volume 85.1 FL (87-102); Monocytes % 11.3 % (1.7-12.7); Red Blood Count 3.03 MC/CUMM (3.8-5.5); Red Cell Distribution Width 16.1 % (9.3-17.3); White Blood Count 6.8 T/CUMM (4-12)
[2020-01-26 06:39] LABS: Platelet Count 79 T/CUMM (130-400)
[2020-01-26 06:42] LABS: Hypochromasia 1+; Microcytosis Slight; Ovalocytes Slight; Platelet Estimate Decreased
[2020-01-26] MEDS: INSULIN REGULAR 100 UNIT/ML SUBCUT SCH ×2 (08:12→12:09)
[2020-01-26] MEDS: ASPIRIN CHEW 81 MG TABLET PO SCH (08:13)
[2020-01-26] MEDS: amLODIPine 5 MG TABLET PO SCH (08:13)
[2020-01-26] MEDS: MULTIVITAMIN (CENTRUM) TABLET PO SCH (08:13)
[2020-01-26 12:31] VITALS: BP 127/89
== END 2020-01-26 14:45 | disposition hospice, home (50) | DRG 475 ==
LOC: N.OR 06:26 → N.SDSINP 06:29 → N.3E 15:51
PROVIDERS: ADMIT Surgery; ATTEND Surgery